=== PATIENT | female | born 2000 | race Caucasian/White ===

== ENCOUNTER 2021-10-05 18:31 | Emergency (ER) | payer MEDICAID ==
[~2021-10-05] VITALS: Ht 154.9 cm; Wt 86.4 kg
[2021-10-05] MEDS ORDERED: BUPR-317 (20:35)
[2021-10-05] MEDS ORDERED: HYDR-3717 (20:35)
[2021-10-05] MEDS ORDERED: DOCU-342 PO (20:35)
[2021-10-05] MEDS ORDERED: SUCR1TAB PO (20:35)
[2021-10-05] MEDS ORDERED: SERT-432 PO (20:35)
[2021-10-05] MEDS ORDERED: PROCHC (20:35)
[2021-10-05] MEDS ORDERED: DICL25TA10 PO (20:35)
[2021-10-05] MEDS ORDERED: PANT20TA18 PO (20:35)
[2021-10-05] MEDS ORDERED: FERR325T7 PO (20:35)
[2021-10-05] MEDS ORDERED: CLON0.1T2 PO (20:35)
[2021-10-05] MEDS ORDERED: HYDR28.340 (20:35)
[2021-10-05] MEDS ORDERED: ibuprofen tablet 400 MG TABLET PO ONE (22:35)
[2021-10-05] MEDS ORDERED: HYDROcodone/acetaminophen 5mg/325mg tablet PO ONE (22:35)
[2021-10-05 23:05] LABS: BASOPHILS # (AUTO) 0.1 X10'3 (0-0.2); BASOPHILS % (AUTO) 0.7 % (0-1); EOSINOPHILS # (AUTO) 0.1 X10'3 (0-0.9); EOSINOPHILS % (AUTO) 0.9 % (0-6); HEMATOCRIT 36.8 % (35.0-45.0); HEMOGLOBIN 12.6 g/dl (12.0-16.0); MEAN CORPUSCULAR HGB CONC 34.2 g/dL (33.0-36.5); MEAN CORPUSCULAR VOLUME 84.7 FL (78-98); MEAN PLATELET VOLUME 8.2 FL (7.4-10.4); MONOCYTES # (AUTO) 0.5 X10'3 (0-0.9); MONOCYTES % (AUTO) 5.4 % (2-12); NEUTROPHILS # (AUTO) 6.3 X10'3 (1.8-7.7); PLATELET COUNT 384 X10'3 (140-440); RED BLOOD COUNT 4.35 X10'6 (4.20-5.60); RED CELL DISTRIBUTION WIDTH 13.2 % (11.5-14.5); WHITE BLOOD COUNT 8.9 X10'3 (4.5-11.0)
[2021-10-05 23:48] VITALS: BP 126/76
== END 2021-10-05 23:51 | disposition home or self-care (01) ==
LOC: ER 18:32
DX: K64.9 Unspecified hemorrhoids (principal); Z88.1 Allergy status to other antibiotic agents; Z91.041 Radiographic dye allergy status
CPT/HCPCS: 36415; 85025; 99283

== ENCOUNTER 2022-12-01 01:00 | Outpatient (CLI) | payer MEDICAID ==
[2022-12-01] VITALS (17 sets, daily range): BP systolic 68–148; BP diastolic 39–108; PULSE 50–115
[~2022-12-01 01:00] MED LIST: BUPR-317; CLON0.1T2 PO; DICL25TA10 PO; DOCU-391 PO; FERR325T7 PO; HYDR-3717; HYDR28.340; PANT20TA18 PO; PROCHC; SERT-432 PO; SUCR1TAB PO
== END 2022-12-01 23:59 | disposition home or self-care (01) ==
LOC: CARD DIAG 01:00
PROVIDERS: ATTEND Student in an Organized Health Care Education/Training Program
DX: R42 Dizziness and giddiness (principal)
CPT/HCPCS: 93660

== ENCOUNTER 2022-12-08 17:59 | Emergency (ER) | payer MEDICAID ==
[~2022-12-08] VITALS: Ht 154.9 cm; Wt 100.9 kg
[2022-12-08 19:59] LABS: BASOPHILS # (AUTO) 0.1 X10'3 (0-0.2); BASOPHILS % (AUTO) 0.6 % (0-1); EOSINOPHILS # (AUTO) 0.2 X10'3 (0-0.9); EOSINOPHILS % (AUTO) 1.6 % (0-6); HEMATOCRIT 39.3 % (35.0-45.0); LYMPHOCYTES # (AUTO) 2.2 X10'3 (1.1-4.8); LYMPHOCYTES % (AUTO) 18.7 % (21-51); MEAN CORPUSCULAR HEMOGLOBIN 27.9 PG (27.0-31.0); MEAN CORPUSCULAR VOLUME 84.6 FL (78-98); MEAN PLATELET VOLUME 8.4 FL (7.4-10.4); MONOCYTES # (AUTO) 0.7 X10'3 (0-0.9); MONOCYTES % (AUTO) 5.8 % (2-12); NEUTROPHILS # (AUTO) 8.6 X10'3 (1.8-7.7); NEUTROPHILS % (AUTO) 73.3 % (42-75); PLATELET COUNT 432 X10'3 (140-440); RED BLOOD COUNT 4.64 X10'6 (4.20-5.60); RED CELL DISTRIBUTION WIDTH 13.8 % (11.5-14.5); WHITE BLOOD COUNT 11.7 X10'3 (4.5-11.0)
[2022-12-08 20:07] LABS: ALANINE AMINOTRANSFERASE 48 U/L (12-78); ALBUMIN 3.7 G/DL (3.4-5.0); ALBUMIN/GLOBULIN RATIO 0.8 (1.1-1.5); ALKALINE PHOSPHATASE 168 IU/L (46-116); ANION GAP 10 (8-16); ASPARTATE AMINO TRANSFERASE 25 U/L (10-37); BILIRUBIN,TOTAL 0.2 MG/DL (0.1-1.0); BLOOD UREA NITROGEN 11 MG/DL (7-18); BUN/CREATININE RATIO 13.1 (10.0-20.0); CALCIUM 9.4 MG/DL (8.5-10.1); CHLORIDE 103 MMOL/L (99-107); CREATININE 0.84 MG/DL (0.40-0.90); GLUCOSE 86 MG/DL (70-104); POTASSIUM 3.9 MMOL/L (3.5-5.1); SODIUM 138 MMOL/L (135-145); TOTAL PROTEIN 8.3 G/DL (6.4-8.2); eCRCL 80 ML/MIN; eGFR 86 ML/MIN
[2022-12-08 20:12] LABS: PRO BRAIN NATRIURETIC PEPTIDE 31 PG/ML (0-125)
[2022-12-08 21:25] VITALS: BP 152/92; PULSE 104; RESP 16; TEMP 97; O2SAT 100
[2022-12-08 21:48] LABS: BILIRUBIN,URINE NEGATIVE (Neg); CLARITY,URINE CLOUDY (Clear); COLOR,URINE YELLOW (Yellow); GLUCOSE, URINE NEGATIVE (Neg); KETONES,URINE NEGATIVE (Neg); LEUKOCYTE ESTERASE ,URINE NEGATIVE (Neg); NITRITES, URINE NEGATIVE (Neg); OCCULT BLOOD,URINE NEGATIVE (Neg); PROTEIN,URINE NEGATIVE (Neg); UROBILINOGEN,URINE 0.2 E.U/dL (0.2-1.0)
[2022-12-08 21:49] LABS: URINE HCG NEGATIVE (NEG)
[2022-12-08 21:53] LABS: UA COLLECTION TYPE CLN CATCH MIDSTREAM
[2022-12-08 21:54] LABS: SQUAMOUS EPITHELIAL CELL,UR MANY /LPF (FEW)
[2022-12-08 21:55] LABS: BACTERIA,URINE 2+ /HPF (Neg); MUCUS STRANDS MANY /LPF (Neg)
[2022-12-08 21:59] LABS: RBC,URINE 0-2 /HPF (0-2); TRANSITIONAL EPI CELLS,URINE FEW /HPF
== END 2022-12-09 00:51 | disposition left against medical advice (07) ==
LOC: ER 18:00
DX: R42 Dizziness and giddiness (principal); Z53.21 Procedure and treatment not carried out due to patient leaving prior to being seen by health care provider
CPT/HCPCS: 36415; 71045; 80053; 81001; 81025; 83880; 84484; 85025; 93005; 99281

== ENCOUNTER 2023-03-22 10:07 | Emergency (ER) | payer MEDICAID ==
[~2023-03-22] VITALS: Ht 154.9 cm; Wt 103.0 kg
[2023-03-22 11:13] LABS: BILIRUBIN,URINE NEGATIVE (Neg); CLARITY,URINE CLOUDY (Clear); COLOR,URINE YELLOW (Yellow); GLUCOSE, URINE 100 mg/dl (Neg); KETONES,URINE NEGATIVE (Neg); LEUKOCYTE ESTERASE ,URINE TRACE (Neg); NITRITES, URINE POSITIVE (Neg); OCCULT BLOOD,URINE NEGATIVE (Neg); PH,URINE 6.5 (4.8-8.0); PROTEIN,URINE NEGATIVE (Neg)
[2023-03-22 11:28] LABS: BASOPHILS # (AUTO) 0.1 X10'3 (0-0.2); BASOPHILS % (AUTO) 0.6 % (0-1); EOSINOPHILS # (AUTO) 0.3 X10'3 (0-0.9); EOSINOPHILS % (AUTO) 2.7 % (0-6); HEMATOCRIT 38.6 % (35.0-45.0); HEMOGLOBIN 12.8 g/dl (12.0-16.0); LYMPHOCYTES # (AUTO) 2.8 X10'3 (1.1-4.8); LYMPHOCYTES % (AUTO) 28.6 % (21-51); MEAN CORPUSCULAR HEMOGLOBIN 28.1 PG (27.0-31.0); MEAN CORPUSCULAR HGB CONC 33.2 g/dL (33.0-36.5); MEAN CORPUSCULAR VOLUME 84.7 FL (78-98); MEAN PLATELET VOLUME 8.4 FL (7.4-10.4); MONOCYTES # (AUTO) 0.6 X10'3 (0-0.9); MONOCYTES % (AUTO) 6.1 % (2-12); PLATELET COUNT 405 X10'3 (140-440); RED BLOOD COUNT 4.56 X10'6 (4.20-5.60); RED CELL DISTRIBUTION WIDTH 13.6 % (11.5-14.5); WHITE BLOOD COUNT 9.6 X10'3 (4.5-11.0)
[2023-03-22 11:29] LABS: UA COLLECTION TYPE CLN CATCH MIDSTREAM
[2023-03-22 11:30] LABS: ALANINE AMINOTRANSFERASE 66 U/L (12-78); ALBUMIN 3.5 G/DL (3.4-5.0); ALBUMIN/GLOBULIN RATIO 0.7 (1.1-1.5); ALKALINE PHOSPHATASE 146 IU/L (46-116); ANION GAP 11 (8-16); ASPARTATE AMINO TRANSFERASE 30 U/L (10-37); BILIRUBIN,TOTAL 0.2 MG/DL (0.1-1.0); BLOOD UREA NITROGEN 10 MG/DL (7-18); BUN/CREATININE RATIO 12.8 (10.0-20.0); CHLORIDE 104 MMOL/L (99-107); CREATININE 0.78 MG/DL (0.40-0.90); GLUCOSE 95 MG/DL (70-104); LIPASE 33 U/L (16-77); POTASSIUM 3.5 MMOL/L (3.5-5.1); SODIUM 140 MMOL/L (135-145); TOTAL CARBON DIOXIDE 25.2 MMOL/L (24-32); TOTAL PROTEIN 8.3 G/DL (6.4-8.2); eCRCL 86 ML/MIN; eGFR > 90 ML/MIN
[2023-03-22 11:33] LABS: BACTERIA,URINE 4+ /HPF (Neg); MUCUS STRANDS MANY /LPF (Neg); SQUAMOUS EPITHELIAL CELL,UR MANY /LPF (FEW)
[2023-03-22 11:34] LABS: RBC,URINE 0-2 /HPF (0-2); WBC,URINE 20-30 /HPF (0-4)
[2023-03-22] MEDS ORDERED: ondansetron 4mg rapidly disintigrating tab PO ONE (12:40)
[2023-03-22 14:15] VITALS: BP 147/88; PULSE 84; RESP 16; TEMP 98.7; O2SAT 99
[2023-03-22] MEDS ORDERED: ONDA4TAB12 PO (14:19)
== END 2023-03-22 14:17 | disposition home or self-care (01) ==
LOC: ER 10:07
DX: R14.0 Abdominal distension (gaseous) (principal); R10.13 Epigastric pain; Z79.2 Long term (current) use of antibiotics; Z88.8 Allergy status to other drugs, medicaments and biological substances; Z79.899 Other long term (current) drug therapy
CPT/HCPCS: 36415; 74018; 76700; 80053; 81001; 83690; 84702; 85025; 99284

== ENCOUNTER 2023-07-14 18:26 | Emergency (ER) | payer BC, MEDICAID ==
[~2023-07-14] VITALS: Ht 154.9 cm; Wt 103.4 kg
[~2023-07-14 18:26] MED LIST changes: +ONDA4TAB12 PO
[2023-07-14 18:28] VITALS: TEMP 98.7
[2023-07-14 19:10] LABS: BASOPHILS % (AUTO) 0.3 % (0-1); EOSINOPHILS # (AUTO) 0.1 X10'3 (0-0.9); EOSINOPHILS % (AUTO) 0.9 % (0-6); HEMATOCRIT 38.5 % (35.0-45.0); HEMOGLOBIN 12.8 g/dl (12.0-16.0); LYMPHOCYTES # (AUTO) 2.4 X10'3 (1.1-4.8); LYMPHOCYTES % (AUTO) 16.8 % (21-51); MEAN CORPUSCULAR HEMOGLOBIN 27.3 PG (27.0-31.0); MEAN CORPUSCULAR HGB CONC 33.2 g/dL (33.0-36.5); MEAN CORPUSCULAR VOLUME 82.2 FL (78-98); MEAN PLATELET VOLUME 8.2 FL (7.4-10.4); MONOCYTES # (AUTO) 0.8 X10'3 (0-0.9); MONOCYTES % (AUTO) 5.5 % (2-12); NEUTROPHILS # (AUTO) 10.9 X10'3 (1.8-7.7); NEUTROPHILS % (AUTO) 76.5 % (42-75); PLATELET COUNT 431 X10'3 (140-440); RED BLOOD COUNT 4.68 X10'6 (4.20-5.60); RED CELL DISTRIBUTION WIDTH 14.4 % (11.5-14.5); WHITE BLOOD COUNT 14.2 X10'3 (4.5-11.0)
[2023-07-14 19:11] LABS: BILIRUBIN,URINE NEGATIVE (Neg); CLARITY,URINE CLEAR (Clear); COLOR,URINE YELLOW (Yellow); GLUCOSE, URINE NEGATIVE (Neg); KETONES,URINE NEGATIVE (Neg); LEUKOCYTE ESTERASE ,URINE SMALL (Neg); NITRITES, URINE NEGATIVE (Neg); OCCULT BLOOD,URINE NEGATIVE (Neg); PROTEIN,URINE NEGATIVE (Neg); UROBILINOGEN,URINE 0.2 E.U/dL (0.2-1.0)
[2023-07-14 19:12] LABS: URINE HCG NEGATIVE (NEG)
[2023-07-14 19:33] LABS: ALANINE AMINOTRANSFERASE 69 U/L (12-78); ALBUMIN/GLOBULIN RATIO 0.9 (1.1-1.5); ALKALINE PHOSPHATASE 160 IU/L (46-116); ANION GAP 10 (8-16); ASPARTATE AMINO TRANSFERASE 28 U/L (10-37); BILIRUBIN,TOTAL 0.4 MG/DL (0.1-1.0); BLOOD UREA NITROGEN 8 MG/DL (7-18); BUN/CREATININE RATIO 10.4 (10.0-20.0); CALCIUM 9.4 MG/DL (8.5-10.1); CHLORIDE 103 MMOL/L (99-107); CREATININE 0.77 MG/DL (0.40-0.90); GLUCOSE 82 MG/DL (70-104); LIPASE 31 U/L (16-77); POTASSIUM 3.6 MMOL/L (3.5-5.1); SODIUM 138 MMOL/L (135-145); TOTAL CARBON DIOXIDE 25.5 MMOL/L (24-32); TOTAL PROTEIN 8.7 G/DL (6.4-8.2); eCRCL 87 ML/MIN; eGFR > 90 ML/MIN
[2023-07-14 19:33] LABS: UA COLLECTION TYPE CLN CATCH MIDSTREAM
[2023-07-14 19:34] LABS: SQUAMOUS EPITHELIAL CELL,UR MANY /LPF (FEW)
[2023-07-14 19:35] LABS: BACTERIA,URINE 3+ /HPF (Neg); RBC,URINE NONE SEEN /HPF (0-2); WBC,URINE 30-50 /HPF (0-4)
[2023-07-14 22:12] VITALS: BP 131/87; PULSE 96; RESP 18; O2SAT 100
[2023-07-14] MEDS ORDERED: iohexol 300mg/ml 100ml inj. ONE (23:24)
[2023-07-15] MEDS: ondansetron/PF 4mg/2ml inj IV ONE (00:21)
== END 2023-07-15 02:33 | disposition left against medical advice (07) ==
LOC: ER 18:27
DX: R10.13 Epigastric pain (principal); R11.2 Nausea with vomiting, unspecified; F41.9 Anxiety disorder, unspecified; Z88.8 Allergy status to other drugs, medicaments and biological substances; Z79.899 Other long term (current) drug therapy; Z79.2 Long term (current) use of antibiotics
CPT/HCPCS: 36415; 74177; 80053; 81001; 81025; 83690; 85025; 96374; 99285; J2405; J3490; Q9967